=== PATIENT | female | born 1985 | race African-American/Black ===

== ENCOUNTER 2021-10-13 11:48 | Inpatient (IN) | payer MEDICAID ==
[~2021-10-13] VITALS: Ht 165.1 cm; Wt 71.2 kg
[2021-10-13 12:54] LABS: MEAN CORPUSCULAR HEMOGLOBIN 15.9 pg (28.0-32.0); MEAN CORPUSCULAR VOLUME 60.5 fL (81.0-99.0); MEAN PLATELET VOLUME 8.2 fl (7.4-10.4); PLATELET 80 x1000/uL (130-400); RED BLOOD CELL COUNT 2.65 mill/uL (4.2-5.4); RED CELL DISTRIBUTION WIDTH 30.1 % (11.6-14.6)
[2021-10-13 13:01] LABS: CHLORIDE 114 mEq/L (98-107)
[2021-10-13 13:03] LABS: HEMOGLOBIN. 4.2 g/dL (12.0-16.0)
[2021-10-13 13:12] LABS: HCG SCREEN NEGATIVE
[2021-10-13 13:26] LABS: PLATELET ESTIMATE DECREASED
[2021-10-13] MEDS ORDERED: ACETAMINOPHEN 325MG TABLET PO PRN ×2 (19:00)
[2021-10-13] MEDS ORDERED: ZOLPIDEM TARTRATE 5MG TABLET PO PRN (19:00)
[2021-10-13] MEDS ORDERED: SODIUM CHLORIDE 0.9% 1,000 ML IV SCH (19:00)
[2021-10-13] MEDS ORDERED: DIPHENHYDRAMINE 50MG/ML VIAL IV PRN (19:00)
[2021-10-13] MEDS ORDERED: ONDANSETRON HCL 4MG/2ML INJ IV PRN (19:00)
[2021-10-13 19:37] VITALS: BP 102/59
[2021-10-13 20:00] VITALS: BP 113/58
[2021-10-13 20:46] LABS: TOTAL IRON BINDING CAPACITY 390 ug/dL (250-450)
[2021-10-14] VITALS (10 sets, daily range): BP systolic 81–122; BP diastolic 42–76
[2021-10-14 07:27] LABS: MEAN CORPUSCULAR VOLUME 66.1 fL (81.0-99.0); RED BLOOD CELL COUNT 2.94 mill/uL (4.2-5.4); RED CELL DISTRIBUTION WIDTH 38.9 % (11.6-14.6)
[2021-10-14 07:52] LABS: HEMATOCRIT 19.5 % (36.0-48.0); HEMOGLOBIN 5.6 g/dL (12.0-16.0)
[2021-10-14 08:46] LABS: PLATELET 63 x1000/uL (130-400)
[2021-10-14] MEDS ORDERED: IRON SUCROSE COMPLEX 100 MG/5 ML ML IV NR (10:15)
[2021-10-14 16:55] LABS: MEAN CORPUSCULAR HEMOGLOBIN 22.3 pg (28.0-32.0); MEAN CORPUSCULAR VOLUME 69.6 fL (81.0-99.0); MEAN PLATELET VOLUME 8.4 fl (7.4-10.4); PLATELET 67 x1000/uL (130-400); RED CELL DISTRIBUTION WIDTH 37.8 % (11.6-14.6)
[2021-10-14 17:05] LABS: CHLORIDE 112 mEq/L (98-107)
[2021-10-14 17:40] LABS: PLATELET ESTIMATE DECREASED
== END 2021-10-14 18:09 | disposition home or self-care (01) | DRG 663 ==
LOC: ER 11:48 → 6EST 15:36 → EDBEDREQTM 15:49 → EDBEDREQ 15:49 → EDBEDREQSVC 15:49 → ENRESERV 16:33
PROVIDERS: ADMIT Internal Medicine; ATTEND Internal Medicine
PROC: 30233N1 Transfusion of Nonautologous Red Blood Cells into Peripheral Vein, Percutaneous Approach (ICD-10-PCS; principal; 2021-10-13)
DX: D64.9 Anemia, unspecified (principal); D69.6 Thrombocytopenia, unspecified; D72.819 Decreased white blood cell count, unspecified; E61.1 Iron deficiency; Z20.822 Contact with and (suspected) exposure to COVID-19; Z91.040 Latex allergy status
CPT/HCPCS: 36415; 80048; 80053; 83540; 83550; 84703; 85025; 85027; 86850; 86900; 86920; 87426; 99291; J7030; J7040; P9016